=== PATIENT | male | born 1975 | race Caucasian/White ===

== ENCOUNTER 2025-03-26 06:44 | Emergency (ER) | payer OTHER ==
[2025-03-26] MEDS: Bacitracin Oint 1 GM U/D Packet ONE (08:09)
[2025-03-26] MEDS: Bacitracin Oint 1 GM U/D Packet TOP ONE (08:09)
== END 2025-03-26 08:23 | disposition home or self-care (01) ==
LOC: DL.ED 06:44
DX: S61.216A Laceration without foreign body of right little finger without damage to nail, initial encounter (principal); W23.0XXA Caught, crushed, jammed, or pinched between moving objects, initial encounter
CPT/HCPCS: 12001; 99282; 99283; A9270; J2003